=== PATIENT | male | born 1985 | race Two or more races ===

== ENCOUNTER 2022-04-29 08:45 | Outpatient (CLI) | payer SELFPAY | END 2022-04-29 23:59 | disposition EMS.NT | LOC: EMS 08:45 | DX: Z04.1 Encounter for examination and observation following transport accident (principal) ==

== ENCOUNTER 2022-09-03 16:47 | Emergency (ER) | payer OTHER ==
--- NOTE | 2022-09-03 18:19 | ED Physician Documentation ---
PD HPI HEENT - Stated complaint Stated Complaint: L EAR PX - Chief complaint Chief Complaint: Ext Problem - History obtained from History obtained from: Patient - History of Present Illness Timing - onset: How many days ago (few) Timing - duration: Days Timing - details: Gradual onset, Still present Location: Left ear Worsens: [place], Position Associated symptoms: Congestion. No: Fever, Cough Similar symptoms before: Has not had sx before Review of Systems Constitutional: denies: Fever, Chills, Myalgias Ears: reports: Loss of hearing (moderate), Ear pain (left). denies: Drain age/discharge, Tinnitus/ringing Nose: reports: Congestion (the past week or so), Sinus pressure / pain Throat: denies: Sore throat Respiratory: denies: Cough PD PAST MEDICAL HISTORY - Past Medical History Past Medical History: No - Present Medications Home Medications: Ambulatory Orders Medication Instructions Recorded Confirmed Amoxicillin 500 mg PO TID #21 cap 09/03/22 Cetirizine [ZyrTEC] 10 mg PO BID #15 tablet 09/03/22 - Allergies Allergies/Adverse Reactions: Allergies Allergy/AdvReac Type Severity Reaction Status Date / Time No Known Drug Allergies Allergy Verified 09/03/22 16:53 PD ED PE NORMAL - Vitals Vital signs reviewed: Yes - General General: Alert and oriented X 3, No acute distress, Well developed/nourished - HEENT HEENT: Pharynx benign. No: Ears normal (right canal and TM normal. Left canal normal. TM intact with distorted landmarks and some redness. ) - Neck Neck: Supple, no meningeal sign, No adenopathy - Cardiac Cardiac: RRR, No murmur - Respiratory Respiratory: Clear bilaterally Results - Vitals Vitals: Vital Signs - 24 hr 09/03/22 09/03/22 16:50 18:50 Temperature 37.4 C Heart Rate 89 87 Respiratory 16 16 Rate Blood Pressure 133/82 H 132/77 H O2 Saturation 97 98 Oxygen O2 Source Room air PD Medical Decision Making - ED course Complexity details: considered differential (Recent seasonal allergies without viral type symptoms. Now with left ear pain and decreased hearing. Looks to be ear infection.), d/w patient Departure - Departure Disposition: 01 Home, Self Care Clinical Impression: Ear pain Qualifiers: Laterality: left Qualified Code(s): H92.02 - Otalgia, left ear Otitis media Qualifiers: Otitis media type: suppurative Chronicity: acute Laterality: left Recurrence: non-recurrent Spontaneous tympanic membrane rupture: without spontaneous rupture Qualified Code(s): H66.002 - Acute suppurative otitis media without spontaneous rupture of ear drum, left ear Condition: Stable Record reviewed to determine appropriate education?: Yes Instructions: ED Otitis Media Acute Adult Prescriptions: Amoxicillin 500 mg PO TID #21 cap Cetirizine [ZyrTEC] 10 mg PO BID #15 tablet Comments: This does have the appearance and sound of a ear infection. The underlying process is typically viral or allergy buildup of fluid through the sinus and eustachian tube leading to pressure and infection in the middle ear. As such we commonly will treat with combination of antihistamine such as cetirizine twice daily for the next week. Also amoxicillin antibiotic 3 times daily for the week. You can also use saline nose spray a few times daily to help cleanse the nasal passage and promote better drainage. For the discomfort, use ibuprofen 600 to 800 mg 3 times daily with food for the pain of it. I would anticipate improvement over the next several days. I sent your prescriptions to [facility] in [place]. You were given a first dose here partha. Discharge Date/Time: 09/03/22 18:53
[2022-09-03] MEDS ORDERED: CETIRIZINE 10 MG TABLET PO STA (18:32)
[2022-09-03] MEDS ORDERED: NAPROXEN 250 MG TABLET PO STA (18:32)
[2022-09-03] MEDS ORDERED: AMOXICILLIN 250 MG CAPSULE PO STA (18:32)
[2022-09-03 18:52] VITALS: BP 132/77
== END 2022-09-03 18:53 | disposition home or self-care (01) ==
LOC: ED 16:47
DX: H66.002 Acute suppurative otitis media without spontaneous rupture of ear drum, left ear (principal)
CPT/HCPCS: 99282; 99283; A9270